=== PATIENT | female | born 1985 | race Caucasian/White ===

== ENCOUNTER 2019-10-16 | Emergency (ER) | payer OTHER ==
--- NOTE | 2019-10-16 02:54 | EDM.PDOC ---
ED HPI GENERAL MEDICAL PROBLEM - General Chief Complaint: General Stated Complaint: WOKE UP HOT AND BECAME VERY DISORIENTED AND PALE Time Seen by Provider: 10/16/19 00:21 Source of Information: Reports: Patient History Limitations: Reports: No Limitations - History of Present Illness INITIAL COMMENTS - FREE TEXT/NARRATIVE: TRIAGE NOTE -- Pt states she got up because she was feeling hot. Pt states she went to the bathroom and started having "fuzzy" vision and states her body went "limp." Pt states he said you were repeating that she felt hot and did not feel well. Pt denies any LOC. Pt states she did get very pale after. PT states she feels tired now [ End ] As above. Essentially the patient is complaining of an episode of near syncope upon standing up. No treatment prior to arrival. No previous occurrence such as this. Risk factors consist of a history of Nancy's thyroiditis and hypertension. It is not clear if the patient had any sufficient evaluation of the hypertension. She has apparently had a full evaluation of her thyroid condition and is on Synthroid. No fever respiratory symptoms or any other symptom of acute medical illness otherwise. Episode was not associated with chest pain shortness of breath or sweating. She has recovered to her usual state and feels quite well on exam. - Related Data Allergies Allergy/AdvReac Type Severity Reaction Status Date / Time No Known Allergies Allergy Verified 10/16/19 00:12 Home Meds: Home Meds Dicyclomine [Bentyl] 10 mg PO BID 10/16/19 [History] L.acidoph,Paracasei, B.lactis [Probiotic] 1 cap PO DAILY 10/16/19 [History] Levothyroxine 25 mcg PO ASDIRECTED 10/16/19 [History] Levothyroxine [Synthroid] 50 mcg PO MOWEFR 10/16/19 [History] Methylcellulose [Fiber] 2 tab PO DAILY 10/16/19 [History] Omeprazole 20 mg PO DAILY 10/16/19 [History] lisinopriL [Lisinopril] 5 mg PO DAILY 10/16/19 [History] Past Medical History Cardiovascular History: Reports: Hypertension Gastrointestinal History: Reports: Diverticulosis, Irritable Bowel Syndrome, Other (See Below) Other Gastrointestinal History: stomach spasm Endocrine/Metabolic History: Reports: Hypothyroidism - Infectious Disease History Infectious Disease History: Reports: Chicken Pox - Past Surgical History GI Surgical History: Reports: Cholecystectomy, Colonoscopy Social & Family History - Family History Family Medical History: Noncontributory - Tobacco Use Smoking Status *Q: Former Smoker Used Tobacco, but Quit: Yes Month/Year Tobacco Last Used: 2014 - Caffeine Use Caffeine Use: Reports: None - Recreational Drug Use Recreational Drug Use: No ED ROS GENERAL - Review of Systems Review Of Systems: Comprehensive ROS is negative, except as noted in HPI. ED EXAM, GENERAL - Physical Exam Exam: See Below Exam Limited By: No Limitations General Appearance: Alert, WD/WN, No Apparent Distress Eye Exam: Bilateral Eye: EOMI, PERRL Ears: Normal External Exam Nose: Normal Inspection Throat/Mouth: Normal Inspection Head: Atraumatic, Normocephalic Neck: Normal Inspection, Supple Respiratory/Chest: No Respiratory Distress, Lungs Clear, Normal Breath Sounds Cardiovascular: Regular Rate, Rhythm, No Edema GI/Abdominal: Soft, Non-Tender Back Exam: Normal Inspection Extremities: Normal Inspection, Non-Tender Neurological: Alert, Oriented, Normal Cognition, No Motor/Sensory Deficits Psychiatric: Normal Affect, Normal Mood Skin Exam: Warm, Dry Course - Vital Signs Last Recorded V/S: Last Vital Signs Temp 36.3 C 10/16/19 00:07 Pulse 67 10/16/19 00:07 Resp 16 10/16/19 00:07 BP 114/80 10/16/19 00:07 Pulse Ox 100 10/16/19 00:07 Orthostatic Blood Pressure [ 108/76 Standing] Orthostatic Blood Pressure [ 111/89 Sitting] Orthostatic Blood Pressure [ 98/80 Supine] - Orders/Labs/Meds Orders: Active Orders 24 hr Category Date Time Status EKG Documentation Completion [RC] ASDIRECTED Care 10/16/19 01:07 Active FREE T3 [REF] Stat Lab 10/16/19 01:20 Received EKG 12 Lead [EK] Stat Ther 10/16/19 01:06 Ordered Labs: Laboratory Tests 10/16/19 10/16/19 10/16/19 Range/Units 01:20 01:20 01:20 WBC 8.79 (3.98-10.04) K/mm3 RBC 4.37 (3.98-5.22) M/mm3 Hgb 12.9 (11.2-15.7) gm/dl Hct 39.9 (34.1-44.9) % MCV 91.3 (79.4-94.8) fl MCH 29.5 (25.6-32.2) pg MCHC 32.3 (32.2-35.5) g/dl RDW Std Deviation 39.7 (36.4-46.3) fL Plt Count 328 (182-369) K/mm3 MPV 8.9 L (9.4-12.3) fl Neutrophils % (Manual) 40 (40-60) % Band Neutrophils % 0 (0-10) % Lymphocytes % (Manual) 38 (20-40) % Atypical Lymphs % 11 % Monocytes % (Manual) 8 (2-10) % Eosinophils % (Manual) 3 (0.7-5.8) % Basophils % (Manual) 0 L (0.1-1.2) Platelet Estimate Adequate Plt Morphology Comment Normal RBC Morph Comment Normal Sodium 138 (136-145) mEq/L Potassium 4.2 (3.5-5.1) mEq/L Chloride 104 (98-107) mEq/L Carbon Dioxide 29 (21-32) mEq/L Anion Gap 9.2 (5-15) BUN 14 (7-18) mg/dL Creatinine 1.0 (0.55-1.02) mg/dL Est Cr Clr Drug Dosing 72.68 mL/min Estimated GFR (MDRD) > 60 (>60) mL/min BUN/Creatinine Ratio 14.0 (14-18) Glucose 96 (74-106) mg/dL Calcium 8.7 (8.5-10.1) mg/dL Total Bilirubin 0.4 (0.2-1.0) mg/dL AST 15 (15-37) U/L ALT 22 (14-59) U/L Alkaline Phosphatase 67 (46-116) U/L Troponin I < 0.017 (0.00-0.056) ng/mL Total Protein 7.0 (6.4-8.2) g/dl Albumin 3.3 L (3.4-5.0) g/dl Globulin 3.7 gm/dL Albumin/Globulin Ratio 0.9 L (1-2) Free T4 1.06 (0.76-1.46) ng/dL TSH 3rd Generation 5.479 H (0.358-3.74) uIU/mL Urine HCG, Qual (NEGATIVE) 10/16/19 Range/Units 01:29 WBC (3.98-10.04) K/mm3 RBC (3.98-5.22) M/mm3 Hgb (11.2-15.7) gm/dl Hct (34.1-44.9) % MCV (79.4-94.8) fl MCH (25.6-32.2) pg MCHC (32.2-35.5) g/dl RDW Std Deviation (36.4-46.3) fL Plt Count (182-369) K/mm3 MPV (9.4-12.3) fl Neutrophils % (Manual) (40-60) % Band Neutrophils % (0-10) % Lymphocytes % (Manual) (20-40) % Atypical Lymphs % % Monocytes % (Manual) (2-10) % Eosinophils % (Manual) (0.7-5.8) % Basophils % (Manual) (0.1-1.2) Platelet Estimate Plt Morphology Comment RBC Morph Comment Sodium (136-145) mEq/L Potassium (3.5-5.1) mEq/L Chloride (98-107) mEq/L Carbon Dioxide (21-32) mEq/L Anion Gap (5-15) BUN (7-18) mg/dL Creatinine (0.55-1.02) mg/dL Est Cr Clr Drug Dosing mL/min Estimated GFR (MDRD) (>60) mL/min BUN/Creatinine Ratio (14-18) Glucose (74-106) mg/dL Calcium (8.5-10.1) mg/dL Total Bilirubin (0.2-1.0) mg/dL AST (15-37) U/L ALT (14-59) U/L Alkaline Phosphatase (46-116) U/L Troponin I (0.00-0.056) ng/mL Total Protein (6.4-8.2) g/dl Albumin (3.4-5.0) g/dl Globulin gm/dL Albumin/Globulin Ratio (1-2) Free T4 (0.76-1.46) ng/dL TSH 3rd Generation (0.358-3.74) uIU/mL Urine HCG, Qual Negative (NEGATIVE) - Re-Assessments/Exams Free Text/Narrative Re-Assessment/Exam: 10/16/19 03:16 A fairly exhaustive evaluation was done without any salient abnormals. Patient was not orthostatic on that exam. A bit of history has emerged which is that the patient used to be morbidly obese and through her own activities she lost 130 pounds over a period of about 2-1/2 years. She has not had any recent evaluation regarding blood pressure though she has had a fairly recent evaluation of her thyroid with labs. There is some concern that she no longer needs an antihypertensive and the lisinopril may have been implicated in her symptoms. In any event she needs a fresh outpatient evaluation of her conditions. Referred locally. See instructions below. 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 There are no salient abnormal findings to explain this. You do have conditions that need medical evaluation as an outpatient. It is possible that your blood pressure medication may have contributed to this. You need to be evaluated as to whether you need a blood pressure medication or not. You have been referred to a local physician Dr. Bowling. Please try to see him before the end of this week. For any subsequent episodes, passing out almost passing out chest pain any concerns at all do not hesitate to come back by EMS. Sepsis Event Note - Evaluation Sepsis Screening Result: No Definite Risk - Focused Exam Vital Signs: Vital Signs Temp Pulse Resp BP Pulse Ox 10/16/19 00:07 36.3 C 67 16 114/80 100 Date Exam was Performed: 10/16/19 Time Exam was Performed: 03:15 - My Orders Last 24 Hours: My Active Orders 10/16/19 01:06 EKG 12 Lead [EK] Stat 10/16/19 01:07 EKG Documentation Completion [RC] ASDIRECTED 10/16/19 01:20 FREE T3 [REF] Stat - Assessment/Plan Last 24 Hours: My Active Orders 10/16/19 01:06 EKG 12 Lead [EK] Stat 10/16/19 01:07 EKG Documentation Completion [RC] ASDIRECTED 10/16/19 01:20 FREE T3 [REF] Stat
== END 2019-10-16 03:32 | disposition home or self-care (01) ==
LOC: JD.ED
DX: I10 Essential (primary) hypertension (principal); E03.8 Other specified hypothyroidism; R63.4 Abnormal weight loss; E06.3 Autoimmune thyroiditis; E66.01 Morbid (severe) obesity due to excess calories; Z68.25 Body mass index [BMI] 25.0-25.9, adult; Z79.899 Other long term (current) drug therapy; Z87.891 Personal history of nicotine dependence
CPT/HCPCS: 36415; 80053; 81025; 84439; 84443; 84481; 84484; 85007; 85027; 93005; 93010; 99283; 99284-25